=== PATIENT | male | born 1940 | race Caucasian/White ===

== ENCOUNTER 2020-07-01 10:17 | Observation (INO) | payer MEDICARE ==
[2020-07-01 10:53] LABS: BASOPHILS % (AUTO) 0.2 %; EOSINOPHILS % (AUTO) 0.2 %; HGB - HEMOGLOBIN 14.1 g/dL (14.0-18.0); LYMPHOCYTES # (AUTO) 0.8 10^3/uL (1.5-3.5); LYMPHOCYTES % (AUTO) 5.9 %; MEAN CORPUSCULAR HEMOGLOBIN 31.2 pg (27.0-31.0); MEAN CORPUSCULAR HGB CONC 34.4 g/dL (32.0-36.0); MEAN CORPUSCULAR VOLUME 90.7 fL (80.0-94.0); MONOCYTES # (AUTO) 1.3 10^3/uL (0.0-1.0); MONOCYTES % (AUTO) 9.3 %; NEUTROPHILS # (AUTO) 11.8 10^3/uL (1.5-6.6); NEUTROPHILS % (AUTO) 83.8 %; PLT - PLATELET COUNT 200 10^3/uL (130-450); RED BLOOD COUNT 4.52 10^6/uL (4.70-6.10); RED CELL DISTRIBUTION WIDTH 13.5 % (12.0-15.0); WHITE BLOOD COUNT 14.1 x10^3/uL (4.8-10.8)
--- NOTE | 2020-07-01 10:57 | ED Physician Documentation ---
PD HPI MALE - Stated complaint Stated Complaint: MALE - Chief complaint Chief Complaint: Abd Pain - History obtained from History obtained from: Patient - History of Present Illness Timing - onset: How many days ago (5) Timing - duration: Days (5) Timing - details: Abrupt onset, Still present Associated symptoms: Unable to urinate PD HPI MALE CONTRIB FACTORS: Other (has had decreased stream for more than a year.) Similar symptoms before: Has not had sx before Recently seen: Not recently seen - Additional information Additional information: 79-year-old male who does not usually go to the doctor has been well until about 5 days ago when he stopped being able to urinate. He states that on Saturday he was out playing golf he has noted that when he urinates he is getting the urge to defecate as well and so he has had to stop urinating in the [place]. He states that he urinates frequently gets up in the night frequently and only goes small amounts and this is been for some time. He is now noticed his lower abdomen is protruded he has pain anytime he goes to move around his pants do not fit him and he is decided to come into the emergency department today. Review of Systems Constitutional: denies: Fever Eyes: denies: Decreased vision Ears: denies: Ear pain Nose: denies: Congestion Throat: denies: Sore throat Cardiac: denies: Chest pain / pressure, Palpitations Respiratory: denies: Dyspnea, Cough GI: reports: Abdominal Pain, Constipation. denies: Nausea, Vomiting, Diarrhea : reports: Unable to Void Skin: denies: Rash Musculoskeletal: denies: Neck pain, Back pain, Extremity pain Neurologic: denies: Generalized weakness, Focal weakness, Numbness PD PAST MEDICAL HISTORY - Past Medical History Past Medical History: No - Past Surgical History Past Surgical History: Yes General: Other Ortho: Arthroscopic surgery - Present Medications Home Medications: Ambulatory Orders Medication Instructions Recorded Confirmed No Known Home Medications 07/01/20 07/01/20 - Allergies Allergies/Adverse Reactions: Allergies Allergy/AdvReac Type Severity Reaction Status Date / Time No Known Drug Allergies Allergy Verified 07/01/20 10:40 - Social History Does the pt smoke?: No Smoking Status: Never smoker Does the pt drink ETOH?: No Does the pt have substance abuse?: No PD ED PE NORMAL - Vitals Vital signs reviewed: Yes (hypertensive ) - General General: Alert and oriented X 3, No acute distress, Well developed/nourished - HEENT HEENT: Atraumatic, PERRL, EOMI - Neck Neck: Supple, no meningeal sign - Cardiac Cardiac: RRR, No murmur - Respiratory Respiratory: No respiratory distress, Clear bilaterally - Abdomen Abdomen: Normal bowel sounds, Other (The abdomen is distended and firm especially to the lower abdominal segment. Consistent with a massively enlarged bladder.) - Back Back: No CVA TTP, No spinal TTP - Derm Derm: Normal color, Warm and dry, No rash - Extremities Extremities: No deformity, No edema - Neuro Neuro: Alert and oriented X 3, supervisor plastic sheets 2-12 intact, No motor deficit, No sensory deficit, Normal speech Eye Opening: Spontaneous Motor: Obeys Commands Verbal: Oriented GCS Score: 15 - Psych Psych: Normal mood, Normal affect Results - Vitals Vitals: Vital Signs - 24 hr 07/01/20 10:32 Temperature 36 C L Heart Rate 84 Respiratory 18 Rate Blood Pressure 165/69 H O2 Saturation 98 Oxygen O2 Source Room air - Labs Labs: Laboratory Tests 07/01/20 07/01/20 07/01/20 10:50 10:50 11:20 WBC 14.1 H RBC 4.52 L Hgb 14.1 Hct 41.0 L MCV 90.7 MCH 31.2 H MCHC 34.4 RDW 13.5 Plt Count 200 MPV 11.0 Neut # (Auto) 11.8 H Lymph # (Auto) 0.8 L Cook # (Auto) 1.3 H Eos # (Auto) 0.0 Baso # (Auto) 0.0 Absolute Nucleated RBC 0.00 Nucleated RBC % 0.0 Sodium 130 L Potassium 5.1 H Chloride 92 L Carbon Dioxide 17 L Anion Gap 21.0 H BUN 104 H* Creatinine 8.9 H* Estimated GFR (MDRD) 6 L Glucose 172 H Calcium 9.0 Total Bilirubin 0.9 AST 18 ALT 22 Alkaline Phosphatase 69 Total Protein 7.5 Albumin 3.9 Globulin 3.6 Albumin/Globulin Ratio 1.1 Lipase 29 Urine Color YELLOW Urine Clarity SL. CLOUDY Urine pH 6.0 Ur Specific [place] 1.010 Urine Protein TRACE Urine Glucose (UA) NEGATIVE Urine Ketones NEGATIVE Urine Occult Blood LARGE H Urine Nitrite NEGATIVE Urine Bilirubin NEGATIVE Urine Urobilinogen 0.2 (NORMAL) Ur Leukocyte Esterase SMALL H Urine RBC TNTC H Urine WBC >25 H Ur Squamous Epith Cells NONE SEEN Urine Bacteria Few Ur Microscopic Review INDICATED Urine Culture Comments INDICATED PD MEDICAL DECISION MAKING - ED course Complexity details: reviewed results, re-evaluated patient, considered differential, d/w patient ED course: 79-year-old male with a history of diminishing urinary stream has now developed acute urinary retention and he has been in retention for more than 5 days. A Wilson catheter is placed with drainage of 2000 mL of urine and the patient's laboratory tests indicate total obstruction for at least 5 days. He will need hospitalization for administration of saline for an anticipated postobstructive diuresis. The BUN and cr are expected to return to normal rapidly. The potassium is 5.1 and expected to drop with hydration and return of kidney function. There is evidence of infection in the urine specimen obtained and the patient is administered IV rocephin. Departure - Departure Disposition: ED Place in Observation Clinical Impression: Acute urinary retention, Acute kidney injury Urinary tract infection Qualifiers: Urinary tract infection type: acute cystitis Hematuria presence: with hematuria Qualified Code(s): N30.01 - Acute cystitis with hematuria
[2020-07-01 11:33] LABS: ALBUMIN 3.9 g/dL (3.2-5.5); ALBUMIN/GLOBULIN RATIO 1.1 (1.0-2.2); BILIRUBIN,TOTAL 0.9 mg/dL (0.2-1.0); TOTAL PROTEIN 7.5 g/dL (6.7-8.2)
[2020-07-01 11:35] LABS: CREATININE 8.9 mg/dL (0.6-1.2)
[2020-07-01 11:39] LABS: BILIRUBIN,URINE NEGATIVE (NEGATIVE); GLUCOSE, URINE (UA) NEGATIVE (NEGATIVE); KETONES,URINE (UA) NEGATIVE (NEGATIVE); LEUKOCYTE ESTERASE, URINE SMALL (NEGATIVE); NITRITE,URINE NEGATIVE (NEGATIVE); OCCULT BLOOD,URINE LARGE (NEGATIVE); PROTEIN,URINE TRACE mg/dL (NEGATIVE); UROBILINOGEN,URINE 0.2 (NORMAL) E.U./dL (NORMAL)
[2020-07-01 11:41] LABS: CLARITY,URINE SL. CLOUDY (CLEAR)
[2020-07-01 11:50] LABS: BACTERIA,URINE Few /HPF (None Seen); RBC,URINE TNTC /HPF (0-5); SQUAMOUS EPITHELIAL CELL,UR NONE SEEN (<= Few)
[2020-07-01] MEDS ORDERED: cefTRIAXone 1 GM in SODIUM CHLORIDE 0.9% MINIBAG 100 ML IV STA (11:59)
[2020-07-01] MEDS ORDERED: SODIUM CHLORIDE FLUSH 0.9% 10 ML SYRINGE IVP PRN (12:07)
[2020-07-01] MEDS ORDERED: ONDANSETRON 4 MG/2 ML VIAL IVP PRN (12:07)
[2020-07-01] MEDS ORDERED: ACETAMINOPHEN 325 MG TABLET PO PRN (12:07)
[2020-07-01] MEDS ORDERED: oxyCODONE 5 MG TABLET PO PRN (12:07)
[2020-07-01] MEDS ORDERED: ONDANSETRON ODT 4 MG TABLET TL PRN (12:07)
[2020-07-01] MEDS ORDERED: TAMSULOSIN 0.4 MG CAPSULE PO STA (12:15)
[2020-07-01 12:57] LABS: PSA FREE 1.409 ng/mL (0.16-2.81)
[2020-07-01 12:58] LABS: PSA TOTAL 5.477 ng/mL (0.000-2.000)
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
[2020-07-01 13:03] LABS: C. PNEUMONIAE- RESP PCR PANEL NOT DETECTED
--- NOTE | 2020-07-01 15:20 | Ultrasound Report ---
PROCEDURE: Retroperitoneal INDICATIONS: new renal failure and obstruction TECHNIQUE: Real-time scanning was performed of the retroperitoneal organs, with image documentation. COMPARISON: None. FINDINGS: Kidneys: Kidneys are normal in size. Right kidney measures 13.4 cm long; left kidney measures 14.0 cm long. Right renal cortical thickness is 1.6 cm; left renal cortical thickness is 1.8 cm. No donato d masses, hydronephrosis. There is left nephrolithiasis measuring 8mm. Upper pole cyst in the right kidney measures 1.7 x 1.5 x 1.5 cm. Multiple left renal cysts are seen in the upper and mid pole reno uring up to 1.7 cm in the upper pole and 2.2 cm in the interpolar region. Prostate is enlarged measuring 6.3 x 5.8 x 4.8 cm. Right hepatic cysts are seen within septation and anechoic appearance Wilson catheter is noted. Bladder is decompressed. IMPRESSION: No hydronephrosis. Left renal calculus measuring 8 mm. Bilateral renal cysts Right hepatic cyst Enlarged prostate Reviewed by: Romero Salcido MD on 07/01/2020 3:19 PM PST Approved by: Romero Salcido MD on 07/01/2020 3:19 PM PST Station ID: [id number]
[2020-07-01] MEDS: SODIUM CHLORIDE FLUSH 0.9% 10 ML SYRINGE IVP SCH (15:59)
[2020-07-01] MEDS: FINASTERIDE 5 MG TABLET PO SCH (15:59)
[2020-07-01] MEDS: SODIUM CHLORIDE 0.9% 1,000 ML IV SCH (16:00)
--- NOTE | 2020-07-01 18:39 | PHARMACY PROGRESS NOTE ---
- Best Possible Medication History Admit Date and Time: 07/01/20 1207 Processed by: Nursing Medication History completed: Yes As the person ultimately responsible for medication therapy, providers are able to order a medication from an existing home medication list in [facility] via the "Reconcile Routine" prior to Confirmation of that medication by software support engineer. Such practice is discouraged except when the physician, in their clinical judgment, deems that a medical need exists for a medication without regard to previous use.
[2020-07-01 20:20] LABS: CALCIUM 9.2 mg/dL (8.5-10.3); CREATININE 3.6 mg/dL (0.6-1.2)
[2020-07-01] MEDS: INSULIN ASPART 300 UNIT/3 ML PEN SUBQ SCH (20:53)
[2020-07-02] MEDS: SODIUM CHLORIDE FLUSH 0.9% 10 ML SYRINGE IVP SCH ×2 (00:11→10:15)
[2020-07-02] MEDS: SODIUM CHLORIDE 0.9% 1,000 ML IV SCH (02:04)
[2020-07-02 05:49] LABS: BASOPHILS % (AUTO) 0.3 %; EOSINOPHILS % (AUTO) 0.4 %; HGB - HEMOGLOBIN 12.9 g/dL (14.0-18.0); LYMPHOCYTES # (AUTO) 1.1 10^3/uL (1.5-3.5); LYMPHOCYTES % (AUTO) 11.7 %; MEAN CORPUSCULAR HEMOGLOBIN 31.2 pg (27.0-31.0); MEAN CORPUSCULAR HGB CONC 32.7 g/dL (32.0-36.0); MEAN CORPUSCULAR VOLUME 95.6 fL (80.0-94.0); MEAN PLATELET VOLUME 11.3 fL (7.4-11.4); MONOCYTES # (AUTO) 0.8 10^3/uL (0.0-1.0); MONOCYTES % (AUTO) 9.3 %; PLT - PLATELET COUNT 184 10^3/uL (130-450); RED BLOOD COUNT 4.13 10^6/uL (4.70-6.10); RED CELL DISTRIBUTION WIDTH 13.8 % (12.0-15.0); WHITE BLOOD COUNT 8.9 x10^3/uL (4.8-10.8)
[2020-07-02 05:56] LABS: CALCIUM 8.8 mg/dL (8.5-10.3); CREATININE 1.4 mg/dL (0.6-1.2)
--- NOTE | 2020-07-02 07:49 | DISCHARGE SUMMARY ---
Discharge Summary Admit Date: 07/01/20 Discharge Date: 07/02/20 Discharging Provider: Crystal Jones Code Status: Attempt Resuscitation Condition at Discharge: Good Discharge Disposition: 01 Home, Self Care - DIAGNOSES Discharge Diagnoses with Status of Each Condition: (1) Acute kidney injury Conclusion/Plan: Improved. Found to have creatinine 8.9 and BUN 104 on admit, most likely related to urinary retention. Additionally was hypertensive with hyperkalemia and hyponatremia, also all likely due to urine retention. Recieved IV fluids overnight with normal saline and creatinine has improved to 1.4. Electrolyte imbalances have resolved. 1. Encourage hydration at home 2. Lei catheter (2) Acute urinary retention Conclusion/Plan: Resolved. Pt admitted with a hx of urinary retention x 5 days, likely obstructive. Reporting > 1year hx nocturia and frequent small streams, difficulty initiating stream. Lei placed in ED has had appropriate urine output, no further signs of retention. Abdominal distention has improved and he no longer reports abdominal cramping. 1. Lei catheter. Do not remove until seen by Urologist. 2. Flomax and Finasteride 3. Follow up Urology and PCP (3) BPH w urinary obs/LUTS Conclusion/Plan: Stable. A retroperitoneal ultrasound revealed an enlarged prostate measuring 6.3 x 5.8 x 4.8 in addition to a left renal calculus measuring 8mm, bilateral renal cysts, and a right hepatic cyst. He has a 5 day hx of being unable to urinate with a 1 year hx of weak stream, nocturia and frequency. PSA was mildly elevated at 5.4. 1. Flomax and Finasteride. 2. Lei catheter, do not remove until approved by Urology. 3. Follow up with Urology. 4. Follow up with PCP. (4) Urinary tract infection Conclusion/Plan: Improved. Urine culture obtained once lei placed, noted to be cloudy with urine WBC > 25 and small amount leukocyte esterase. WBC down to 8.9 from 14.1 after abx initiated. Will send home on 14 day total course Cipro for UTI, longer duration given urinary retention x 5 days. 1. Cipro, 14 day course (last dose 07/14) Qualifiers: Urinary tract infection type: acute cystitis Hematuria presence: with he maturia Qualified Code(s): N30.01 - Acute cystitis with hematuria (5) Hypertension Conclusion/Plan: Stable. No known hx of HTN. SBPs have ranged 120-160s even with IVF, may have essential primary hypertension. Will start him on Lisinopril and have him follow up with his PCP. Lisinopril okay now that his kidney injury is almost completely resolved. 1. Start Lisinopril 2. Follow up PCP Qualifiers: Hypertension type: unspecified Qualified Code(s): I10 - Essential (primary) hypertension (6) Hyperkalemia Conclusion/Plan: Resolved. No hx hyperkalemia. No heart palpitations or arrhythmias on EKG. K on admit was 5.1, likely related to the acute kidney injury 2/2 urinary retention, normalized to 4.1 this morning. (7) Hyponatremia Conclusion/Plan: Resolved. Sodium on admit was low at 130, again likely related to urine retention and kidney injury, now normalized to 140. (8) Hyperglycemia Conclusion/Plan: Stable. No hx diabetes. Sliding scale insulin ordered, required 1unit Novalog overnight. Blood sugars 150-190s. Will need to follow up with his PCP and Diabetic Clinic for education and diabetes management. HgA1C 6.3%. Believes t he high sugars are related to a "winter diet that is mostly sugar", educated that this is likely diabetes as his pancreas would be able to handle a high sugar diet if he did not have diabetes. Instructed to monitor diet and decrease sugar intake. 1. Follow up PCP 2. Diabetic diet - HPI History of Present Illness: 79 year old male with no known medical history presented to ED with 5 days of being unable to urinate. His abdomen has become more distended and crampy. He reports a one year history of nocturia, frequency, and weak stream. He also has been constipated since Saturday, only able to have a liquid stool a few days ago after taking a friend's laxative (unsure of the name). While in the ED, a lei catheter was placed with 3L output. A urine cx revealed he had a UTI. He denies recent fevers but has noted chills/rigors at home. No shortness of breath or cough. Labs revealed a K of 5.1, creatinine 8.9, Na 130 and glucose 172. His BPs have been elevated to the 160s. He denies a hx of HTN or diabetes. He last saw his PCP a year ago and was told everything was normal but he had a "16% chance of something being wrong with his prostate". He was admitted for acute kidney injury 2/2 urinary retention and UTI, with monitoring of the hyperkalemia, hyponatremia, hyperglycemia, and hypertension. Unclear if these are related to the acute kidney injury and urinary retention or if they are their own problems, will continue to monitor. - HOSPITAL COURSE Hospital Course: HD 1 patient admitted with urinary obstruction/retention and UTI, with 5 days of inability to void and 1 year of nocturia, urgency, and weak stream. Retroperitoneal ultrasound revealed BPH and enlarged prostate. Lei placed in ED with immediate bloody output. Creatinine 8.9, WBC 14, K5.1. Started on Cipro for UTI and Flomax+Finasteride for BPH. Given a fluid bolus and started on IVF with normal saline which continued overnight. Morning labs revealed resolution of hyperkalemia and hyponatremia. WBC 8.9. Creatinine has come down to 1.4 and urine is now yellow and clear. His BP has remained elevated and he likely has primary hypertension, was started on Lisinopril day of discharge after his kidney injury improved. Blood sugars have been elevated up to 190s adn he was started on sliding scale insulin. An A1C is pending at time of discharge and he was instructed to limit sugar intake and follow up with his PCP for BPH, HTN, and DM. He is also complaining of 1/10 intermittent sharp pains in the RLQ that was not reproducible with deep palpation. Likely related to gas pains from 5 days of constipation vs a bladder spasm. Instructed to return to the ED for fevers, chills, increased pain, large amounts of blood in the urine (instructed that small amounts will be normal given the lei insertion over the very large prostate), and lei removal. He discharged to home with strict instructions to leave the lei in place until he sees a Urologist. - ALLERGIES Allergies/Adverse Reactions: Allergies Allergy/AdvReac Type Severity Reaction Status Date / Time No Known Drug Allergies Allergy Verified 07/01/20 10:40 - MEDICATIONS Home Medications: Ambulatory Orders Medication Instructions Recorded Confirmed Ciprofloxacin [Cipro] 500 mg PO Q12H #56 07/02/20 Finasteride [Proscar] 5 mg PO DAILY #30 mg 07/02/20 Tamsulosin [Flomax] 0.4 mg PO DAILY #30 mg 07/02/20 lisinopriL [Zestril] 5 mg PO DAILY #30 mg 07/02/20 - PHYSICAL EXAM AT DISCHARGE General Appearance: positive: No acute distress, Alert Eyes Bilateral: positive: Normal inspection, PERRL, EOMI ENT: positive: ENT inspection nml, No signs of dehydration Neck: positive: Nml inspection Respiratory: positive: Chest non-tender, No respiratory distress, Breath sounds nml Cardiovascular: positive: Regular rate & rhythm Peripheral Pulses: positive: 2+ Abdomen: positive: Abnml bowel sounds (hypoactive), Other (Occasional sharp 1/10 RLQ spasm, nothing makes better or worse; abdomen still distended but soft) Rectal: positive: Enlarged prostate (seen on ultrasound) Skin: positive: Color nml Extremities: positive: Non-tender, Full ROM, Nml appearance Neurologic/Psychiatric: positive: Oriented x3 - LABS Result Diagrams: 07/02/20 05:27 07/02/20 05:27 - DIAGNOSTIC IMAGING Diagnostic Imaging Results: Final report reviewed Diagnostic Imaging Results Comments: 07/01 retroperitoneal ultrasound revealed an enlarged prostate measuring 6.3 x 5.8 x 4.8 in addition to a left renal calculus measuring 8mm, bilateral renal cysts, and a right hepatic cyst. - SEPSIS Current Stage of Sepsis: Ruled out Possible source of Sepsis: Genitourinary Sepsis Criteria: WBC count greater than 12,000 or less than 4000 - FOLLOW UP Follow Up: PCP and Urology - TIME SPENT Time Spent in Discharge (Minutes): 35
--- NOTE | 2020-07-02 08:23 | Discharge Plan ---
Discharge Plan Problem Reviewed?: Yes Disposition: Home, Self Care Condition: Good Prescriptions: Ciprofloxacin [Cipro] 500 mg PO Q12H #56 Tamsulosin [Flomax] 0.4 mg PO DAILY #30 mg Finasteride [Proscar] 5 mg PO DAILY #30 mg lisinopriL [Zestril] 5 mg PO DAILY #30 mg Diet: Diabetic Activity Restrictions: Activity as Tolerated Shower Restrictions: No Driving Restrictions: No Instruction Topics: Finasteride Proscar tablets, Tamsulosin capsules, Lisinopril tablets, Diabetes Healthy Meals, Diabetes Carbs, Probs Prostate Related Urinary Sx, TURP, Hypertension Dc, Catheter Indwelling Urinary Dc Health Concerns: You presented to the hospital with a long history of decreasing urine stream, increasing frequency and having to get up to go to the bathroom at night. Its been getting steadily worse, but you stopped having any urine output 5 days before admission. We found you to have a completely obstructed bladder from a very large prostate. A Wilson catheter had to be inserted to drain your bladder. We also found you to have a urinary tract infection. The trauma of the Wilson catheter going into urethra and through the prostate gland has caused a bit of bleeding in your urine but it is not dangerous. The other problems we found for you are untreated high blood pressure and most likely untreated type 2 diabetes mellitus. Diabetes mellitus is a disease that can be treated with diet, medications, or insulin. It is unclear where your disease status is. But you do have diabetes mellitus. Plan of Treatment: 1. We will be starting you on lisinopril 5 mg daily for high blood pressure. 2. Please see your primary care provider in the next 1 to 2 weeks because you will need to be started on diabetic management. We would strongly encourage you to go to diabetic classes. You think that your sugar is elevated because you've been indiscrete with your diet over the winter, that is most likely so, but you still have diabetes. A normal person who is indiscrete with her diet still has a normal sugar if they don't have diabetes. 3. You had a urinary tract infection associated with the urinary retention. You will need to go home on ciprofloxacin 250 mg tablets. 2 tablets twice a day for the next 2 weeks. Your urologist or primary care provider may opt to extend the treatment. That is because it is difficult to treat infection in a male because of the prostate. 4. Please have your primary care provider refer you to urology. There are 2 groups that we usually refer to. One is [facility] urology, Dr. Florencia mann which. He is in [place]. He is a very otilio man. His office number is [phone]. The other group is [facility] urology. Their office in [place] is [phone]. They also have offices in [place] and [facility] if you cannot get into [place] quickly enough. You need to keep the Wilson catheter in place until you see urology. Do not remove it until you see them. If you remove it too soon, the bladder obstruction will recur, and you will only have to have another Wilson catheter placed. 5. In addition to the lisinopril for your blood pressure, we have also started you on 2 prostate medications. Flomax will relax your bladder and allow you to pee beyond the prostate obstruction. Proscar or finasteride will shrink your prostate so that it is not as large a pressure on urethra blocking your ability to urinate. Care Goals: to be able to urinate normally, to control you blood pressure and diabetes so that you do not have a heart attack or stroke Assessment: patient understands and is reluctant to accept diagnosis but will follow thru Follow-Up Care: [facility] - Diabetes Ed No Smoking: If you smoke, Please STOP! Call for help. Follow-up with: Zohreh Patton MD [Primary Care Provider] -
[2020-07-02 08:33] VITALS: BP 142/59
[2020-07-02] MEDS ORDERED: CIPROFLOXACIN 250 MG TABLET PO SCH (09:00)
[2020-07-02 09:41] LABS: HEMOGLOBIN A1c% 6.3 % (4.27-6.07)
[2020-07-02] MEDS: INSULIN ASPART 300 UNIT/3 ML PEN SUBQ SCH (10:14)
[2020-07-02] MEDS: FINASTERIDE 5 MG TABLET PO SCH (10:15)
== END 2020-07-02 11:49 | disposition home or self-care (01) ==
LOC: ED 10:17 → MS2 12:07
PROVIDERS: ADMIT Specialist; ATTEND Specialist
DX: N17.9 Acute kidney failure, unspecified (principal); N40.1 Benign prostatic hyperplasia with lower urinary tract symptoms; N13.8 Other obstructive and reflux uropathy; R33.9 Retention of urine, unspecified; R35.0 Frequency of micturition; R35.1 Nocturia; R39.12 Poor urinary stream; I10 Essential (primary) hypertension; E87.5 Hyperkalemia; E87.1 Hypo-osmolality and hyponatremia; N30.01 Acute cystitis with hematuria; R73.9 Hyperglycemia, unspecified; K59.00 Constipation, unspecified
CPT/HCPCS: 36415; 51702; 51798; 76770; 80048; 80053; 81001; 83036; 83690; 84153; 84154; 85025; 87086; 87631; 96365; 99284; 99285; A9270; G0378; 0202U; 81003

== ENCOUNTER 2020-07-29 14:21 | Outpatient (CLI) | payer MEDICARE ==
--- NOTE | 2020-07-29 15:48 | Ultrasound Report ---
PROCEDURE: Retroperitoneal INDICATIONS: URINARY RETENTION TECHNIQUE: Real-time scanning was performed of the kidneys and bladder, with image documentation. COMPARISON: Renal ultrasound 07/01/2020. FINDINGS: Kidneys: Kidneys are normal in size. Right kidney measures 11.5 cm long; left kidney measures 12.3 cm long. Right renal cortical thickness is 1.1 cm; left renal cortical thickness is 1.2 cm. No donato d masses. Small simple appearing renal cysts bilaterally. Largest on the right measures 1.6 cm; and o n the left measures 2.2 cm. Left kidney caliectasis. No kidney stones are identified. Bladder: Wilson catheter is in place. Prevoid volume of 621 cc. Post void residual of 14 cc. Ureteral jets are not seen. Prostate gland is enlarged measuring 7.5 x 7 x 6.1 cm. Incidental benign hepatic cysts. IMPRESSION: 1. Wilson catheter is in place. The bladder drains nearly completely. 2. Mild left kidney caliectasis. No kidney stones are identified. If clinically indicated consider CT KUB for further evaluation. Reviewed by: Gustavo Patel MD on 07/29/2020 3:47 PM PST Approved by: Gustavo Patel MD on 07/29/2020 3:47 PM PST Station ID: [id number]
== END 2020-07-29 14:22 | disposition home or self-care (01) ==
LOC: DI 14:21
PROVIDERS: ATTEND Physician Assistant Medical
DX: N28.89 Other specified disorders of kidney and ureter (principal)

== ENCOUNTER 2020-09-05 23:58 | Emergency (ER) | payer MEDICARE ==
[2020-09-06] MEDS ORDERED: ONDANSETRON 4 MG/2 ML VIAL IVP STA (01:31)
[2020-09-06] MEDS ORDERED: HYDROmorphone 1 MG/ML CARPUJECT IVP STA (01:31)
--- NOTE | 2020-09-06 02:03 | ED Physician Documentation ---
PD HPI MALE - Stated complaint Stated Complaint: MALE - Chief complaint Chief Complaint: Abd Pain - History obtained from History obtained from: Patient - History of Present Illness Timing - onset: Today Timing - duration: Hours Timing - details: Gradual onset, Still present Associated symptoms: Unable to urinate, Wilson problem PD HPI MALE CONTRIB FACTORS: Indwelling catheter (has been removed today) Similar symptoms before: Diagnosis (Acute urinary retention) Recently seen: Clinic - Additional information Additional information: 79-year-old male required hospitalization for acute urinary retention with approximately 3000 mL of urine in the bladder and a creatinine up to 8.4. He had resolution overnight of his symptoms with drainage of the bladder and IV fluids he was treated for infection as well. He has had the catheter in place since and he has had 2 voiding trials which he has failed. Today he went into the clinic and they remove the catheter to do a voiding trial again and he was unable to void they discussed self cath. The patient opted for self cathing and in the teaching they were unable to get urine out and the patient was unwilling to drink extra fluids and wait and instead went home and was unable to get urine with the cath at home. He got blood and debris. He comes now to the emergency department uncomfortable with a full bladder and unable to self cath. Review of Systems Constitutional: denies: Fever Eyes: denies: Decreased vision Ears: denies: Ear pain Nose: denies: Congestion Throat: denies: Sore throat Cardiac: denies: Chest pain / pressure Respiratory: denies: Cough GI: denies: Nausea, Vomiting, Constipation : reports: Unable to Void, Wilson Problem Skin: denies: Rash Musculoskeletal: denies: Neck pain, Back pain PD PAST MEDICAL HISTORY - Past Medical History Cardiovascular: None Respiratory: None Neuro: None Endocrine/Autoimmune: None GI: None : Frequency HEENT: None Psych: None Musculoskeletal: None Derm: None - Past Surgical History Past Surgical History: Yes General: Other Ortho: Arthroscopic surgery HEENT: Tonsil/Adenoidectomy - Present Medications Home Medications: Ambulatory Orders Medication Instructions Recorded Confirmed Finasteride [Proscar] 5 mg PO DAILY #30 mg 07/02/20 Tamsulosin [Flomax] 0.4 mg PO DAILY #30 mg 07/02/20 lisinopriL [Zestril] 5 mg PO DAILY #30 mg 07/02/20 - Allergies Allergies/Adverse Reactions: Allergies Allergy/AdvReac Type Severity Reaction Status Date / Time No Known Drug Allergies Allergy Verified 07/01/20 10:40 - Social History Does the pt smoke?: No Smoking Status: Never smoker Does the pt drink ETOH?: No Does the pt have substance abuse?: No - POLST Patient has POLST: No POLST Status: Full Code PD ED PE NORMAL - Vitals Vital signs reviewed: Yes (Hypertensive) - General General: Alert and oriented X 3, No acute distress, Well developed/nourished - HEENT HEENT: Atraumatic, PERRL, EOMI - Neck Neck: Supple, no meningeal sign - Cardiac Cardiac: RRR, No murmur - Respiratory Respiratory: No respiratory distress, Clear bilaterally - Abdomen Abdomen: Soft, Other (There is mild suprapubic tenderness to palpation.The lower abdominal segment is not distended as it was previously) - Back Back: No CVA TTP, No spinal TTP - Derm Derm: Normal color, Warm and dry, No rash - Extremities Extremities: No deformity, No edema - Neuro Neuro: Alert and oriented X 3, rubberizing mechanic 2-12 intact, No motor deficit, No sensory deficit, Normal speech Eye Opening: Spontaneous Motor: Obeys Commands Verbal: Oriented GCS Score: 15 - Psych Psych: Normal mood, Normal affect Results - Vitals Vitals: Vital Signs - 24 hr 09/06/20 09/06/20 09/06/20 00:10 00:46 01:00 Temperature 36.7 C 36.7 C Heart Rate 93 91 89 Respiratory 20 20 28 H Rate Blood Pressure 201/86 H 202/100 H 229/105 H O2 Saturation 98 98 96 09/06/20 09/06/20 09/06/20 01:35 01:45 02:00 Temperature Heart Rate 79 Respiratory 22 Rate Blood Pressure 129/65 147/100 H O2 Saturation 98 78 L 98 Oxygen O2 Source Nasal cannula Procedures - Bedside sono Bedside sono by EMP: With use bedside ultrasound the bladder is imaged there is a large clot present and it does appear that the Wilson catheter is lodged in the clot. I am able to see debris being dislodged when Saline is pushed into the catheter. There is return of blood but no urine. PD MEDICAL DECISION MAKING - ED course Complexity details: reviewed old records, reviewed results, re-evaluated patient, considered differential, d/w patient ED course: 79-year-old male with acute urinary retention appears to have clot retention and we are unable to resolve his clot retention with our three-way catheter here in the emergency department after multiple attempts. I have contacted Dr. Rodriguez the urologist at [facility] and he will accept the patient in transfer. They are nearly full today and I have talked to Dr. Rosas the emergency department ph ysician at [facility] and he will accept the patient to their emergency department. The patient did become quite uncomfortable with the manipulations and required a milligram of Dilaudid which made him much more comfortable. His blood pressure returned to normal. Departure - Departure Disposition: 02 Transfer Acute Care Hosp Clinical Impression: Acute urinary retention
[2020-09-06 02:31] VITALS: BP 155/83
[2020-09-06 03:57] LABS: B. PARAPERTUSSIS- RESP PCR PAN NOT DETECTED; B. PERTUSSIS- RESP PCR PANEL NOT DETECTED; C. PNEUMONIAE- RESP PCR PANEL NOT DETECTED; CORONAVIRUS 229E-RESP PCR NOT DETECTED; CORONAVIRUS HKU1-RESP PCR NOT DETECTED; CORONAVIRUS NL63-RESP PCR NOT DETECTED; CORONAVIRUS OC43-RESP PCR NOT DETECTED; HUMAN METAPNEUMOVIRUS NOT DETECTED; INFLUENZA A- RESP PCR PANEL NOT DETECTED; INFLUENZA B - RESP PCR PANEL NOT DETECTED; M. PNEUMONIAE- RESP PCR PANEL NOT DETECTED; PARAINFLUENZA VIRUS 1 NOT DETECTED; PARAINFLUENZA VIRUS 2 NOT DETECTED; PARAINFLUENZA VIRUS 3 NOT DETECTED; PARAINFLUENZA VIRUS 4 NOT DETECTED; RHINOVIRUS/ENTEROVIRUS NOT DETECTED; RSV- RESP PCR PANEL NOT DETECTED; SARS-CoV-2 -RESP PCR PANEL NOT DETECTED
== END 2020-09-06 03:09 | disposition short-term general hospital (02) ==
LOC: ED 23:58
DX: R33.9 Retention of urine, unspecified (principal); N32.89 Other specified disorders of bladder; Z20.822 Contact with and (suspected) exposure to COVID-19
CPT/HCPCS: 51702; 87631; 96374; 96375; 99284; 99285; J1170; 0202U

== ENCOUNTER 2020-09-06 03:05 | Outpatient (CLI) | payer MEDICARE | END 2020-09-06 03:06 | disposition short-term general hospital (02) | LOC: EMS 03:05 | PROVIDERS: ATTEND Emergency Medicine | DX: R33.9 Retention of urine, unspecified (principal) | CPT/HCPCS: A0425; A0428 ==

== ENCOUNTER 2022-05-12 18:38 | Emergency (ER) | payer MEDICARE ==
--- NOTE | 2022-05-12 18:51 | ED Physician Documentation ---
PD HPI MALE - Stated complaint Stated Complaint: CATHETER CAME OUT - History obtained from History obtained from: Patient - Additional information Additional information: 81-year-old gentleman with long-term Wilson catheter dependence presents because his Wilson fell out. It fell out just about an hour ago. He feels fine. Examination of the catheter shows that a pinpoint hole had formed near the port for the balloon and the balloon water had leaked out probably causing the Wilson to come out. Review of Systems Constitutional: denies: Fever, Chills GI: denies: Abdominal Pain : denies: Dysuria, Frequency PD PAST MEDICAL HISTORY - Past Medical History Cardiovascular: None Respiratory: None Neuro: None Endocrine/Autoimmune: None GI: None : Indwelling catheter, Frequency HEENT: None Psych: None Musculoskeletal: None Derm: None - Past Surgical History Past Surgical History: Yes General: Other Ortho: Arthroscopic surgery HEENT: Tonsil/Adenoidectomy - Present Medications Home Medications: Ambulatory Orders Medication Instructions Recorded Confirmed Finasteride [Proscar] 5 mg PO DAILY #30 mg 07/02/20 Tamsulosin [Flomax] 0.4 mg PO DAILY #30 mg 07/02/20 lisinopriL [Zestril] 5 mg PO DAILY #30 mg 07/02/20 - Allergies Allergies/Adverse Reactions: Allergies Allergy/AdvReac Type Severity Reaction Status Date / Time No Known Drug Allergies Allergy Verified 07/01/20 10:40 - Social History Does the pt smoke?: No Smoking Status: Never smoker Does the pt drink ETOH?: No Does the pt have substance abuse?: No - POLST Patient has POLST: No POLST Status: Full Code PD ED PE NORMAL - Vitals Vital signs reviewed: Yes - General General: Alert and oriented X 3, No acute distress - Abdomen Abdomen: Soft, Non tender - Back Back: No CVA TTP, No spinal TTP - Derm Derm: Normal color, Warm and dry - Extremities Extremities: No edema - Neuro Neuro: Alert and oriented X 3, Normal speech Results - Vitals Vitals: Oxygen O2 Source Nasal cannula PD Medical Decision Making - ED course ED course: Wilson catheter replaced with same size, 20 [place]. Departure - Departure Disposition: 01 Home, Self Care Clinical Impression: Dislodged Wilson catheter Qualifiers: Encounter type: initial encounter Qualified Code(s): T83.021A - Displacement of indwelling urethral catheter, initial encounter Condition: Good Record reviewed to determine appropriate education?: Yes Instructions: ED Catheter Care Wilson
[2022-05-12 18:53] VITALS: BP 177/102
== END 2022-05-12 19:11 | disposition home or self-care (01) ==
LOC: ED 18:38
DX: T83.021A Displacement of indwelling urethral catheter, initial encounter (principal); R35.0 Frequency of micturition
CPT/HCPCS: 51702; 99282; 99283

== ENCOUNTER 2023-01-07 17:11 | Emergency (ER) | payer MEDICARE ==
[2023-01-07 17:17] VITALS: BP 150/84; O2SAT 98
--- NOTE | 2023-01-07 18:19 | ED Physician Documentation ---
History of Present Illness - Stated complaint Stated Complaint: - Chief complaint Chief Complaint: Abd Pain - History obtained from History obtained from: Patient - History of Present Illness Timing: Today Pain level max: 0 Pain level now: 0 - Additonal information Additional information: 80-year-old male has a chronic indwelling Wilson catheter. He states that the catheter has not been draining today. Here requesting a new catheter. He is supposed to have it changed on . No fevers. No chills. Nothing makes it better or worse. Review of Systems Constitutional: denies: Fever GI: denies: Vomiting PD PAST MEDICAL HISTORY - Past Medical History Cardiovascular: None Respiratory: None Neuro: None Endocrine/Autoimmune: None GI: None : Indwelling catheter, Frequency HEENT: None Psych: None Musculoskeletal: None Derm: None - Past Surgical History Past Surgical History: Yes General: Other Ortho: Arthroscopic surgery HEENT: Tonsil/Adenoidectomy - Present Medications Home Medications: Ambulatory Orders Medication Instructions Recorded Confirmed Finasteride [Proscar] 5 mg PO DAILY #30 mg 07/02/20 Tamsulosin [Flomax] 0.4 mg PO DAILY #30 mg 07/02/20 lisinopriL [Zestril] 5 mg PO DAILY #30 mg 07/02/20 - Allergies Allergies/Adverse Reactions: Allergies Allergy/AdvReac Type Severity Reaction Status Date / Time No Known Drug Allergies Allergy Verified 01/07/23 17:14 - Social History Does the pt smoke?: No Smoking Status: Never smoker Does the pt drink ETOH?: No Does the pt have substance abuse?: No - POLST Patient has POLST: No POLST Status: Full Code PD ED PE NORMAL - Vitals Vital signs reviewed: Yes - General General: Alert and oriented X 3, No acute distress, Well developed/nourished - HEENT HEENT: Moist mucous membranes - Neck Neck: Supple, no meningeal sign - Cardiac Cardiac: RRR, Strong equal pulses - Respiratory Respiratory: No respiratory distress, Clear bilaterally - Abdomen Abdomen: Soft, Non tender, Non distended - Derm Derm: Warm and dry - Neuro Neuro: Alert and oriented X 3 - Psych Psych: Normal mood, Normal affect Results - Vitals Vitals: Vital Signs - 24 hr 01/07/23 17:14 Temperature 36.5 C Heart Rate 75 Respiratory 18 Rate Blood Pressure 150/84 H O2 Saturation 98 Oxygen O2 Source Room air PD Medical Decision Making - ED course Complexity details: considered differential, d/w patient ED course: Patient's Wilson catheter was changed, draining urine freely. Patient asymptomatic. The catheter appears to have malfunctioned originally. We will have him follow-up with his doctor as scheduled for further care. Patient counseled regarding signs and symptoms for which I believe and urgent re-evaluation would be necessary. Patient with good understanding of and agreement to plan and is comfortable going home at this time This document was made in part using voice recognition software. While efforts are made to proofread this document, sound alike and grammatical errors may occur. Departure - Departure Disposition: 01 Home, Self Care Clinical Impression: Wilson catheter problem Qualifiers: Encounter type: initial encounter Qualified Code(s): T83.9XXA - Unspecified complication of genitourinary prosthetic device, implant and graft, initial encounter Condition: Good Instructions: ED Catheter Care Wilson Follow-Up: Zohreh Patton MD [Primary Care Provider] - Within 1 week Comments: Your Wilson catheter was changed today. Please follow-up with your doctor for further care. Return if you worsen. Forms: PCP List Discharge Date/Time: 01/07/23 18:20
== END 2023-01-07 18:20 | disposition home or self-care (01) ==
LOC: ED 17:11
DX: T83.091A Other mechanical complication of indwelling urethral catheter, initial encounter (principal); R33.9 Retention of urine, unspecified
CPT/HCPCS: 51702; 99283

== ENCOUNTER 2023-02-08 11:55 | Outpatient (CLI) | payer MEDICARE ==
--- NOTE | 2023-02-08 14:45 | XRAY Report ---
PROCEDURE: Chest 2 View X-Ray INDICATIONS: CHRONIC COUGH TECHNIQUE: 2 views of the chest were acquired. COMPARISON: None. FINDINGS: Surgical changes and devices: None. Lungs and pleura: No pleural effusions or pneumothorax. Lungs are clear. Mediastinum: Mediastinal contours appear normal. Heart size is normal. Bones and chest wall: No suspicious bony lesions. Overlying soft tissues appear unremarkable. Samir wing osteophytes or syndesmophytes are seen throughout the thoracic spine. IMPRESSION: 1.No acute cardiopulmonary process. 2.Flowing syndesmophytes throughout the thoracic spine. Recommend correlation for possible ankylosing spondylitis. Reviewed by: Amos San MD on 02/08/2023 2:44 PM PDT Approved by: Amos San MD on 02/08/2023 2:44 PM PDT Station ID: [id number]
== END 2023-02-08 11:56 | disposition home or self-care (01) ==
LOC: DI 11:55
PROVIDERS: ATTEND Internal Medicine
DX: R05.3 Chronic cough (principal); M53.84 Other specified dorsopathies, thoracic region

== ENCOUNTER 2023-05-28 08:29 | Emergency (ER) | payer MEDICARE ==
[2023-05-28 08:40] VITALS: BP 172/77; O2SAT 98
--- NOTE | 2023-05-28 08:48 | ED Physician Documentation ---
PD HPI MALE - Stated complaint Stated Complaint: CLOG - Chief complaint Chief Complaint: Abd Pain - History obtained from History obtained from: Patient - History of Present Illness Timing - onset: Today, Last night Timing - details: Abrupt onset, Still present Associated symptoms: Unable to urinate, Lei problem (he states lei not draining since last night, with feeling of full bladder.) Similar symptoms before: Diagnosis (has had lei clog at times in the past, typically at just before getting it regularly changed (gets it every 4-5 weeks).) Review of Systems Constitutional: denies: Fever, Chills Musculoskeletal: denies: Back pain PD PAST MEDICAL HISTORY - Past Medical History Cardiovascular: None Respiratory: None Neuro: None Endocrine/Autoimmune: None GI: None : Indwelling catheter, Frequency HEENT: None Psych: None Musculoskeletal: None Derm: None - Past Surgical History Past Surgical History: Yes General: Other Ortho: Arthroscopic surgery HEENT: Tonsil/Adenoidectomy - Present Medications Home Medications: Ambulatory Orders Medication Instructions Recorded Confirmed Finasteride [Proscar] 5 mg PO DAILY #30 mg 07/02/20 Tamsulosin [Flomax] 0.4 mg PO DAILY #30 mg 07/02/20 lisinopriL [Zestril] 5 mg PO DAILY #30 mg 07/02/20 - Allergies Allergies/Adverse Reactions: Allergies Allergy/AdvReac Type Severity Reaction Status Date / Time No Known Drug Allergies Allergy Verified 01/07/23 17:14 - Social History Does the pt smoke?: No Smoking Status: Never smoker Does the pt drink ETOH?: No Does the pt have substance abuse?: No - POLST Patient has POLST: No POLST Status: Full Code PD ED PE NORMAL - Vitals Vital signs reviewed: Yes - General General: Alert and oriented X 3, Well developed/nourished, Other (uncomfortable with lower abd cramping and feeling full bladder distended. external genitalia normal with lei in place. Sediment in tubing. ) Results - Vitals Vitals: Oxygen O2 Source Room air PD Medical Decision Making - ED course Complexity details: considered differential (seems lei clogged with sediment. Bladder full and cramping. Nursing removed old one and replaced with new, with good flow and clear urine. Pt feeling much better. No clinical inidication for UTI. ), d/w patient Departure - Departure Disposition: Home, Self Care Clinical Impression: Acute on chronic urinary retention, Lei catheter problem Condition: Stable Record reviewed to determine appropriate education?: Yes Follow-Up: Zohreh Patton MD [Primary Care Provider] - Comments: Your catheter seems to be draining well. Presumably got clogged with some sediment etc. Discuss with your primary care or your urologist your idea of having the catheter changed every 3 weeks rather than 4 since you had this happen a couple of times towards the end of that 4-week period. Return if problems. Forms: PCP List Discharge Date/Time: 05/28/23 09:31
== END 2023-05-28 09:31 | disposition home or self-care (01) ==
LOC: ED 08:29
DX: T83.091A Other mechanical complication of indwelling urethral catheter, initial encounter (principal); R33.9 Retention of urine, unspecified; Y82.8 Other medical devices associated with adverse incidents
CPT/HCPCS: 51702; 99283

== ENCOUNTER 2023-09-15 11:50 | Emergency (ER) | payer MEDICARE ==
--- NOTE | 2023-09-15 12:49 | ED Physician Documentation ---
History of Present Illness - Stated complaint Stated Complaint: CATH CHANGE - Chief complaint Chief Complaint: General - History obtained from History obtained from: Patient - History of Present Illness Pain level max: 0 Pain level now: 0 - Additonal information Additional information: 83-year-old male presents to the emergency department stating he has a chronic indwelling Wilson catheter. It was supposed to be changed a week ago, but does not have catheter change scheduled until Saturday. Yesterday started leaking urine around the catheter. Today having urinary retention. No pain. Here requesting catheter change. No fevers. No chills. No vomiting. PD PAST MEDICAL HISTORY - Past Medical History Past Medical History: Yes Cardiovascular: None Respiratory: None Neuro: None Endocrine/Autoimmune: None GI: None : Indwelling catheter, Frequency HEENT: None Psych: None Musculoskeletal: None Derm: None - Past Surgical History Past Surgical History: Yes General: Other Ortho: Arthroscopic surgery HEENT: Tonsil/Adenoidectomy - Present Medications Home Medications: Ambulatory Orders Medication Instructions Recorded Confirmed Finasteride [Proscar] 5 mg PO DAILY #30 mg 07/02/20 Tamsulosin [Flomax] 0.4 mg PO DAILY #30 mg 07/02/20 lisinopriL [Zestril] 5 mg PO DAILY #30 mg 07/02/20 - Allergies Allergies/Adverse Reactions: Allergies Allergy/AdvReac Type Severity Reaction Status Date / Time No Known Drug Allergies Allergy Verified 09/15/23 12:04 - Social History Does the pt smoke?: No Smoking Status: Never smoker Does the pt drink ETOH?: No Does the pt have substance abuse?: No - Immunizations Immunizations are current?: Yes - POLST Patient has POLST: No POLST Status: Full Code PD ED PE NORMAL - Vitals Vital signs reviewed: Yes - General General: Alert and oriented X 3, No acute distress - HEENT HEENT: Moist mucous membranes - Cardiac Cardiac: RRR - Respiratory Respiratory: No respiratory distress - Abdomen Abdomen: Soft, Non tender, Non distended - Derm Derm: Warm and dry - Neuro Neuro: Alert and oriented X 3 - Psych Psych: Normal mood, Normal affect Results - Vitals Vitals: Vital Signs - 24 hr 09/15/23 12:04 Temperature 36 C L Heart Rate 72 Respiratory 18 Rate Blood Pressure 178/68 H O2 Saturation 99 Oxygen O2 Source Room air PD Medical Decision Making - ED course Complexity details: considered differential, d/w patient ED course: Wilson catheter was changed. No other complaints. No evidence of UTI. No indication for urinalysis. Wilson catheter is draining freely and no further leakage. Patient counseled regarding signs and symptoms for which I believe and urgent re-evaluation would be necessary. Patient with good understanding of and agreement to plan and is comfortable going home at this time This document was made in part using voice recognition software. While efforts are made to proofread this document, sound alike and grammatical errors may occur. Departure - Departure Disposition: 01 Home, Self Care Clinical Impression: Wilson catheter problem Qualifiers: Encounter type: initial encounter Qualified Code(s): T83.9XXA - Unspecified complication of genitourinary prosthetic device, implant and graft, initial encounter Condition: Good Instructions: ED Catheter Care Wilson Follow-Up: Zhoreh Patton MD [Primary Care Provider] - Comments: Your Wilson catheter was changed today. Please follow-up with your doctor for further care. Return if you worsen. Forms: PCP List
[2023-09-15 13:07] VITALS: BP 150/70; O2SAT 100
== END 2023-09-15 13:00 | disposition home or self-care (01) ==
LOC: ED 11:50
DX: T83.038A Leakage of other urinary catheter, initial encounter (principal); R33.9 Retention of urine, unspecified
CPT/HCPCS: 51702; 99283